=== PATIENT | female | born 1980 | race American Indian/Alaskan Native ===

== ENCOUNTER 2017-12-15 13:36 | Emergency (ER) | payer SELFPAY ==
[2017-12-15] MEDS ORDERED: CATAPRES ONE (14:15)
[2017-12-15] MEDS ORDERED: CATAPRES PO ONE (14:16)
--- NOTE | 2017-12-15 14:17 | Emergency Department Report ---
Blank Doc - Documentation Documentation: Patient is a 37-year-old female who is presenting with hypertension. Patient went to donate plasma today and was turned away because her blood pressure was near 200 systolic. Patient has no signs symptoms and/or damage of the blood pressure is 195 systolic at this time. Patient was given Catapres and be monitored.
--- NOTE | 2017-12-15 14:56 | Emergency Department Report ---
HPI - General Chief Complaint: High BP Time Seen by Provider: 12/15/17 14:13 - HPI HPI: Patient is a 37-year-old female who is presenting with hypertension. Patient went to donate plasma today and was turned away because her blood pressure was greatly elevated. She presents with no symptoms ED Past Medical Hx - Past Medical History Previous Medical History?: Yes Additional medical history: Vaginal dleivery x 5 - Surgical History Past Surgical History?: Yes Additional Surgical History: x 2, Abscess removed from left arm - Social History Smoking Status: Never Smoker Substance Use Type: Alcohol, Marijuana - Medications Home Medications: Home Medications Medication Instructions Recorded Confirmed Last Taken Type amLODIPine [Norvasc] 5 mg PO DAILY #40 tab 12/15/17 Unknown Rx ED Review of Systems ROS: Stated complaint: HYPERTENSIVE Other details as noted in HPI Constitutional: denies: chills, fever Eyes: denies: eye pain, eye discharge, vision change ENT: denies: ear pain, throat pain Respiratory: denies: cough, shortness of breath, wheezing Cardiovascular: denies: chest pain, palpitations Endocrine: no symptoms reported Gastrointestinal: denies: abdominal pain, nausea, diarrhea Genitourinary: denies: urgency, dysuria, discharge Musculoskeletal: denies: back pain, joint swelling, arthralgia Skin: denies: rash, lesions Neurological: denies: headache, weakness, paresthesias Psychiatric: denies: anxiety, depression Hematological/Lymphatic: denies: easy bleeding, easy bruising Physical Exam - Physical Exam Vital Signs: Vital Signs 12/15/17 12/15/17 13:52 14:47 Temperature 98.2 F Pulse Rate 86 Respiratory 20 Rate Blood Pressure 196/109 Blood Pressure 165/107 [Right] O2 Sat by Pulse 99 Oximetry Physical Exam: GENERAL: Alert and oriented x3, no apparent distress, Normal Gait, atraumatic. HEAD: Head is normocephalic and a-traumatic. EYES: Extra ocular muscles are intact. Pupils are equal, round, and reactive to light and accommodation. EARS: symetrical, atraumatic, non tender, ear canal clear and moderate cerumen, tympanic membrance non inflamed. gross auditory nml bilaterally. LUNGS: Symetrical with respiration, No wheezing, no rales or crackles, CTAB. HEART: S1, S2 present, regular rate and rhythm without murmur, no rubs, no gallops. Non tender to palpation NEUROLOGIC: The patient is cooperative with no focal neurologic deficits. Cranial nerves II through XII are grossly intact. Normal speech. Normal sensation in bilateral upper and lower extremities, No loss of sensation, SKIN: Warm and dry, No lesions, No ulceration or induration present. ED Course Vital Signs 12/15/17 12/15/17 13:52 14:47 Temperature 98.2 F Pulse Rate 86 Respiratory 20 Rate Blood Pressure 196/109 Blood Pressure 165/107 [Right] O2 Sat by Pulse 99 Oximetry ED Medical Decision Making - Medical Decision Making 37-year-old female with a history of blood pressure presents with elevated blood pressure ED course: Catapres was given in ED Blood pressure monitored and taken agai blood pressure reduced. Discussed with patient will need further management from her primary care to assess for high blood pressure diagnosis. Discussed with patient could be a one time occurrence due to anxiety. Patient was asymptomatic in the ED. Referral was given for primary care physician. Vital signs normalized prior to discharge. Patient sent home with amlodipine 5 mg daily for which his blood pressure and to follow-up with primary care Discussed with the patient and she has any worsening symptoms or new onset of symptoms to return to ED immediately. Critical care attestation.: If time is entered above; I have spent that time in minutes in the direct care of this critically ill patient, excluding procedure time. ED Disposition Clinical Impression: Elevated blood pressure reading Disposition: DC-01 TO HOME OR SELFCARE Is pt being admited?: No Does the pt Need Aspirin: No Condition: Stable Instructions: Low Sodium Diet (ED), Hypertension (ED) Additional Instructions: Make sure to follow up with the primary care physician as discussed. Take all your medications as you've been prescribed. If you have any worsening symptoms or develop new symptoms please return to ED immediately. Prescriptions: amLODIPine [Norvasc] 5 mg PO DAILY #40 tab Referrals: PRIMARY CARE, [Primary Care Provider] - 3-5 Days [facility] [Outside] - 3-5 Days [facility] [Outside] - 3-5 Days [facility] [Outside] - 3-5 Days [facility] [Outside] - 3-5 Days [facility] [Provider Group] - 3-5 Days [facility] [Provider Group] - 3-5 Days Forms: Work/School Release Form(ED) Time of Disposition: 15:00
[2017-12-15 15:18] VITALS: BP 158/94
== END 2017-12-15 15:42 | disposition home or self-care (01) ==
LOC: ED 13:36
DX: I10 Essential (primary) hypertension (principal); F12.10 Cannabis abuse, uncomplicated
CPT/HCPCS: 99282